=== PATIENT | male | born 1960 | race Caucasian/White ===

== ENCOUNTER 2022-08-28 10:43 | Emergency (ER) | payer OTHER, SELFPAY ==
--- NOTE | ~2022-08-28 | XR_ITS ---
Left Shoulder Technique: AP and scapular Y views were obtained. Clinical History: Pain Findings: No fracture or dislocation is seen. Osseous alignment is anatomic. There is mild AC joint d egenerative change. Glenohumeral joint is preserved. Soft tissues are unremarkable. Impression: . Mild AC joint degenerative change. Reviewed, dictated and finalized at location . Impression: . Mild AC joint degenerative change.
--- NOTE | 2022-08-28 11:01 | ED.UPPEXIN ---
HPI - Extremity Injury (Upper) General Chief Complaint: Extremity Injury, Upper Stated Complaint: lt shoulder injury Time Seen by Provider: 08/28/22 11:01 Source: patient Mode of arrival: ambulatory Limitations: no limitations History of Present Illness HPI narrative: 62-year-old male presented for complaint of left shoulder pain for 4 days. States he woke in the morning the day of onset, with pain and stiffness to the shoulder. Denies known injury. Pain is constant, endorses the pain is worse with pulling movements including opening doors or putting on his socks. Has trouble pushing himself up from the bed. He denies radiating pain from the neck to the hand, numbness, tingling, or weakness. Endorses decreased range of motion at the shoulder due to pain. Patient refused to take any medication for pain. States he applied 3 lidocaine patches without any change. Related Data Allergies Allergy/AdvReac Type Severity Reaction Status Date / Time No Known Allergies Allergy Verified 08/28/22 10:58 Review of Systems Review of Systems: CONSTITUTIONAL: Denies body aches, fever, chills EYES: Denies visual changes ENT: Denies rhinorrhea, congestion CARDIOVASCULAR: Denies chest pain, palpitations, or edema. RESPIRATORY: Denies cough or dyspnea. GASTROINTESTINAL: Denies abdominal pain, nausea, vomiting, or diarrhea. SKIN: Denies rash, itching, or wounds. MUSCULOSKELETAL: per HPI NEUROLOGIC: Denies headache, numbness, tingling, or weakness. All systems reviewed & are unremarkable except as noted in HPI and below PMFSH Past Medical History Medical History (Updated 08/28/22 @ 11:47 by Joanna Nicholas, ALBERTO) No pertinent past medical history Comments At time of signature, I have reviewed and agree with nursing past medical, surgical, social and family history unless otherwise noted. Please see nursing chart for further information. There is no relevant family history pertinent to the presenting complaint Exam Narrative: GENERAL: Well-appearing, well-nourished, and in no acute distress. HEAD: Normocephalic, atraumatic. EYES: PERRLA, conjunctivae clear NECK: Supple. CHEST: Speaks in full sentences. No respiratory distress. HEART: Regular rate and rhythm. Normal and equal peripheral pulses. EXTREMITIES: Left arm has normal strength and sensation,pumpman strong and equal. Limited left shoulder range of motion due to pain with movement, unable to tolerate arm over head; pain occurs at 90degrees. Tender to anterior and inferior aspects. No ecchymosis, No open wounds, or obvious deformity; alignment normal, pulse palpable and equal bilaterally, skin warm, dry, pink. Capillary refill less than 3 seconds. SKIN: Warm, dry, no rash. NEURO: Alert and oriented x3. PSYCH: Normal mood and affect Course Course Emergency Course: Patient is aware of diagnosis, understands and agrees to treatment plan. Anticipatory guidance given. Patient agrees to follow-up as directed and is aware of reasons to seek care at the emergency department. Portions of this record may have been created with voice recognition software Level of Care: Express Care Visit Vital Signs Vital signs: Vital Signs Temperature 97.2 F L 08/28/22 11:03 Pulse Rate 80 08/28/22 11:03 Respiratory Rate 16 08/28/22 11:03 Blood Pressure 155/88 H 08/28/22 11:03 Pulse Oximetry 97 08/28/22 11:03 Temperature 97.2 F L 08/28/22 11:03 Pulse Rate 80 08/28/22 11:03 Respiratory Rate 16 08/28/22 11:03 Blood Pressure 155/88 H 08/28/22 11:03 Pulse Oximetry 97 08/28/22 11:03 Reviewed Procedures FB Removal Eye Foreign Body #1: Foreign Body Removal Date: 08/28/22 Location: eye (L) Topical anesthetic used: tetracaine Evidence of corneal penetration: No Technique: eye wash bottle Procedure performed under: other (norwood lamp) Patient tolerated procedure: well and no complications Foreign Bod
[2022-08-28 11:03] VITALS: BP 155/88; PULSE 80; RESP 16; TEMP 36.2; O2SAT 97
== END 2022-08-28 11:52 | disposition home or self-care (01) ==
PROVIDERS: Emergency Provider Nurse Practitioner Family
DX: M25.512 Pain in left shoulder (principal); H57.12 Ocular pain, left eye
CPT/HCPCS: 73030; 99213; A9270; G0463